=== PATIENT | female | born 1970 | race Caucasian/White ===

== ENCOUNTER 2017-08-12 19:42 | Emergency (ER) | payer BC ==
[~2017-08-12] VITALS: Ht 167.6 cm; Wt 52.2 kg
--- NOTE | 2017-08-12 20:09 | NUR ---
DR ADWOA FLORES MD AT BEDSIDE FOR MSE.
--- NOTE | 2017-08-12 20:27 | NUR ---
Patient discharged to home in stable conditon. Written and verbal after care instructions given. Patient verbalizes understanding of instructions. Pt ambulatory w/ steady gait. No distress noted. Pt took all personal belongings. Pt accompanied by significant other.
[2017-08-12 20:30] VITALS: BP 111/68
== END 2017-08-12 20:31 | disposition home or self-care (01) ==
LOC: ER 19:43
DX: M54.5 Low back pain (principal)
CPT/HCPCS: A4663

== ENCOUNTER 2018-05-29 17:03 | Emergency (ER) | payer BC ==
[~2018-05-29] VITALS: Ht 170.2 cm; Wt 52.2 kg
[2018-05-29] MEDS ORDERED: AMPH20CA3 PO (17:11)
[2018-05-29] MEDS ORDERED: IBUP-1957 PO (17:11)
[2018-05-29 17:23] LABS: BASOPHILS # (AUTO) 0.1 K/uL (0.0-8.0); BASOPHILS % (AUTO) 0.5 % (0.0-2.0); EOSINOPHILS % (AUTO) 0.4 % (0.0-7.0); HEMATOCRIT 33.9 % (31.2-41.9); HEMOGLOBIN 10.9 g/dL (10.9-14.3); LYMPHOCYTES # (AUTO) 0.9 K/uL (20.0-40.0); LYMPHOCYTES % (AUTO) 7.7 % (20.5-51.5); MEAN CORPUSCULAR HEMOGLOBIN 27.6 uug (24.7-32.8); MEAN CORPUSCULAR HGB CONC 32 g/dL (32.3-35.6); MEAN CORPUSCULAR VOLUME 85.7 fL (75.5-95.3); MONOCYTES # (AUTO) 0.8 K/uL (2.0-10.0); MONOCYTES % (AUTO) 6.4 % (0.0-11.0); NEUTROPHILS # (AUTO) 10.1 K/uL (1.8-8.9); PLATELET COUNT (AUTO) 304 K/uL (179-408); RED BLOOD CELL COUNT(AUTO) 3.95 MIL/uL (3.63-4.92); WHITE BLOOD COUNT (AUTO) 11.9 K/uL (3.8-11.8)
[2018-05-29 17:28] LABS: *BILIRUBIN,URIN NEGATIVE (NEGATIVE); *BLOOD, URINE 2+ (NEGATIVE); *CLARITY,URINE CLOUDY (CLEAR); *COLOR,URINE YELLOW (YELLOW); *KETONES,URINE NEGATIVE (NEGATIVE); *UROBILINOGEN,URINE 0.2 E.U./dl (NORMAL); LEUKOCYTE ESTERASE ,URINE TRACE (NEGATIVE); NITRITE, URINE POSITIVE (NEGATIVE); PH,URINE >=9.0 (5.0-8.0); UGLUCOSE NEGATIVE (NEGATIVE)
[2018-05-29 17:31] LABS: *URINE HCG, QUAL NEGATIVE (NEGATIVE)
[2018-05-29 17:33] LABS: CREATININE 0.8 mg/dL (0.6-1.3); POTASSIUM 3.7 mmol/L (3.5-5.1)
--- NOTE | 2018-05-29 17:35 | NUR ---
Patient refused IV line insertion for now, notified.
[2018-05-29 17:36] LABS: BACTERIA,URINE MANY /HPF (NONE SEEN); MUCUS,URINE MANY /LPF (0-FEW); SQUAMOUS EPITHELIAL CELL,UR MODERATE /HPF (NONE SEEN); URINE AMORPHOUS PHOSPHATES MODERATE /HPF
[2018-05-29] MEDS ORDERED: MORPHINE SULFATE 4 MG/1 ML DISP.SYRIN ONE (17:36)
[2018-05-29] MEDS ORDERED: ONDANSETRON 4 MG/2 ML VIAL ONE (17:36)
--- NOTE | 2018-05-29 17:37 | NUR ---
Patient wants to HOLD the IV morphine for now until the U/S scan is done & MD dominique notified.
[2018-05-29 17:39] LABS: BILIRUBIN,DIRECT 0.1 mg/dL (0.0-0.2); BILIRUBIN,TOTAL 0.5 mg/dL (0.2-1.0); TOTAL PROTEIN, SERUM 7.3 g/dL (6.4-8.2)
[2018-05-29] MEDS: ONDANSETRON 4 MG/2 ML VIAL IV ONE ×2 (17:44→17:54)
[2018-05-29] MEDS: MORPHINE SULFATE 4 MG/1 ML DISP.SYRIN IV ONE ×2 (17:44→18:35)
--- NOTE | 2018-05-29 18:30 | NUR ---
Patient is consenting to IV Morphine now, still for pelvic exam & CT scan@this time.
--- NOTE | 2018-05-29 18:55 | NUR ---
Patient is resting comfortably on gurney while intermittently using her personal electronic device, NAD, for results and disposition.
--- NOTE | 2018-05-29 19:00 | NUR ---
Received report from Maureen, assumed care of pt.,
--- NOTE | 2018-05-29 19:06 | NUR ---
Pt. back from CT, all needs met, NAD
--- NOTE | 2018-05-29 19:36 | NUR ---
Called Radiology to f/u on CT and US results, pt. reports being thirsty - awaiting results to give fluids
--- NOTE | 2018-05-29 19:51 | NUR ---
Pt. given ice chips for comfort,
--- NOTE | 2018-05-29 20:23 | NUR ---
Dr. Mata at bedside to discuss treatment, mother at bedside,
[2018-05-29] MEDS ORDERED: AMOXICILLIN-CLAVUL 875-125MG TABLET PO ONE (20:45)
[2018-05-29] MEDS ORDERED: HYDROCODONE/APAP 5-325MG TABLET PO ONE (20:45)
[2018-05-29] MEDS ORDERED: AMOXICILLIN-CLAVUL 875-125MG TABLET ONE (20:50)
[2018-05-29] MEDS ORDERED: HYDROCODONE/APAP 5-325MG TABLET ONE (20:50)
--- NOTE | 2018-05-29 21:08 | NUR ---
Patient discharged to home in stable conditon. Written and verbal after care instructions given. Patient verbalizes understanding of instructions. Pt. d/c w/ prescription per MD order, d/c papers signed, all belongings w/ pt., ID band/IV removed, ambulated off unit w/ steady gait accompanied by mother, instructed not to drive, NAD,
== END 2018-05-29 21:10 | disposition home or self-care (01) ==
LOC: ER 17:06
DX: R10.32 Left lower quadrant pain (principal); M54.5 Low back pain; Z79.1 Long term (current) use of non-steroidal anti-inflammatories (NSAID); Z79.899 Other long term (current) drug therapy
CPT/HCPCS: 36415; 74176; 76856; 80048; 80076; 81001; 83690; 84703; 85025; 96374; 96375; 99284; J2270; J2405; A4663

== ENCOUNTER 2019-07-01 13:47 | Emergency (ER) | payer BC, OTHER ==
[~2019-07-01] VITALS: Ht 167.6 cm; Wt 54.4 kg
[~2019-07-01 13:47] MED LIST: AMPH20CA3 PO; IBUP-1957 PO
--- NOTE | 2019-07-01 14:03 | NUR ---
PT IS IN ROOM #4A. DR RICO EVALUATED THE PT.
[2019-07-01] MEDS ORDERED: HYDROMORPHONE 1 MG/1 ML DISP.SYRIN IV ONE (14:15)
[2019-07-01] MEDS ORDERED: ONDANSETRON 4 MG/2 ML VIAL IV ONE (14:15)
[2019-07-01] MEDS ORDERED: IV NORMAL SALINE 1000 ML BAG IV ONE (14:15)
[2019-07-01] MEDS ORDERED: HYDROMORPHONE 1 MG/1 ML DISP.SYRIN ONE (14:19)
[2019-07-01] MEDS ORDERED: ONDANSETRON 4 MG/2 ML VIAL ONE (14:19)
[2019-07-01 14:22] LABS: BASOPHILS # (AUTO) 0.1 K/uL (0.0-8.0); BASOPHILS % (AUTO) 0.8 % (0.0-2.0); EOSINOPHILS # (AUTO) 0.1 K/uL (0.0-0.7); EOSINOPHILS % (AUTO) 1.3 % (0.0-7.0); HEMOGLOBIN 11.5 g/dL (10.9-14.3); LYMPHOCYTES # (AUTO) 1.5 K/uL (20.0-40.0); LYMPHOCYTES % (AUTO) 17.1 % (20.5-51.5); MEAN CORPUSCULAR HEMOGLOBIN 28.7 uug (24.7-32.8); MEAN CORPUSCULAR HGB CONC 33 g/dL (32.3-35.6); MEAN CORPUSCULAR VOLUME 87.5 fL (75.5-95.3); MONOCYTES # (AUTO) 0.5 K/uL (2.0-10.0); MONOCYTES % (AUTO) 5.8 % (0.0-11.0); NEUTROPHILS # (AUTO) 6.7 K/uL (1.8-8.9); PLATELET COUNT (AUTO) 276 K/uL (179-408)
[2019-07-01 14:26] LABS: *URINE HCG, QUAL NEGATIVE (NEGATIVE)
[2019-07-01 14:29] LABS: *BILIRUBIN,URIN NEGATIVE (NEGATIVE); *CLARITY,URINE CLEAR (CLEAR); *COLOR,URINE YELLOW (YELLOW); *KETONES,URINE NEGATIVE (NEGATIVE); *UROBILINOGEN,URINE 0.2 E.U./dl (NORMAL); CREATININE 0.9 mg/dL (0.6-1.3); LEUKOCYTE ESTERASE ,URINE NEGATIVE (NEGATIVE); NITRITE, URINE NEGATIVE (NEGATIVE); POTASSIUM 3.4 mmol/L (3.5-5.1); UGLUCOSE NEGATIVE (NEGATIVE)
[2019-07-01 14:33] LABS: *BLOOD, URINE TRACE (NEGATIVE)
[2019-07-01 14:35] LABS: BILIRUBIN,DIRECT 0.2 mg/dL (0.0-0.2); BILIRUBIN,TOTAL 0.7 mg/dL (0.2-1.0); TOTAL PROTEIN, SERUM 7.6 g/dL (6.4-8.2)
[2019-07-01 14:36] LABS: MUCUS,URINE MANY /LPF (0-FEW); SQUAMOUS EPITHELIAL CELL,UR FEW /HPF (NONE SEEN); WBC,URINE 0-3 /HPF (0-3)
--- NOTE | 2019-07-01 15:43 | NUR ---
Patient discharged to home in stable condition. Written and verbal after care instructions given. Patient verbalizes understanding of instructions. pt walks in steady gait. pt not driving.Stressed follow up or return to ER for worsening s/s.
[2019-07-01 15:44] VITALS: BP 141/81
== END 2019-07-01 15:45 | disposition home or self-care (01) ==
LOC: ER 13:47
DX: K57.32 Diverticulitis of large intestine without perforation or abscess without bleeding (principal); G43.909 Migraine, unspecified, not intractable, without status migrainosus; Z79.899 Other long term (current) drug therapy; R11.0 Nausea
CPT/HCPCS: 36415; 74176; 80048; 80076; 81001; 83690; 84703; 85025; 96361; 96374; 96375; 99284; J1170; J2405; A4663; J7030

== ENCOUNTER 2020-09-28 23:21 | Emergency (ER) | payer BC, MEDICAID, OTHER ==
[~2020-09-28] VITALS: Ht 167.6 cm; Wt 54.4 kg
[2020-09-29] MEDS ORDERED: TDAP DIPH,PERTUSS,TET VAC/PF 0.5 ML DISP.SYRIN IM ONE ×2 (01:00→01:13)
[2020-09-29] MEDS ORDERED: LIDOCAINE HCL 1% 20 ML VIAL IJ ONE (01:00)
--- NOTE | 2020-09-29 01:00 | NUR ---
Patient is resting comfortably in bed with her daughter at bedside, no acute distress noted.
[2020-09-29 01:29] VITALS: BP 118/72
== END 2020-09-29 02:00 | disposition home or self-care (01) ==
LOC: ER 23:23
DX: S61.211A Laceration without foreign body of left index finger without damage to nail, initial encounter (principal); W26.0XXA Contact with knife, initial encounter; Y93.G1 Activity, food preparation and clean up; Y92.010 Kitchen of single-family (private) house as the place of occurrence of the external cause
CPT/HCPCS: 90715; A4217; A4663

== ENCOUNTER 2022-07-28 21:38 | Emergency (ER) | payer MEDICAID ==
[~2022-07-28] VITALS: Ht 165.1 cm; Wt 56.7 kg
--- NOTE | 2022-07-28 22:00 | NUR ---
Pt is noted alert, responsive as she came in C/O Abdominal pain and Cramping with Diarrhea x2days. Pt care continue as awaits MD orders.
[2022-07-28] MEDS ORDERED: IV NORMAL SALINE 1000 ML BAG IV ONE (22:15)
[2022-07-28] MEDS ORDERED: ONDANSETRON 4 MG/2 ML VIAL IV ONE (22:15)
[2022-07-28] MEDS ORDERED: HYDROMORPHONE 1 MG/1 ML DISP.SYRIN IV ONE (22:15)
[2022-07-28 22:35] LABS: HEMATOCRIT 41.6 % (31.2-41.9); MEAN CORPUSCULAR HEMOGLOBIN 32.4 uug (24.7-32.8); MEAN CORPUSCULAR VOLUME 95.1 fL (75.5-95.3); PLATELET COUNT (AUTO) 292 K/uL (179-408)
[2022-07-28] MEDS ORDERED: ONDANSETRON 4 MG/2 ML VIAL ONE (22:39)
[2022-07-28] MEDS ORDERED: HYDROMORPHONE 1 MG/1 ML DISP.SYRIN ONE (22:40)
--- NOTE | 2022-07-28 22:43 | NUR ---
Pt care continue as she us been medicated with Dilaudid 1mg IVP , Zofran 4mg IVPand 0.9NS [id number] given.
[2022-07-28] MEDS ORDERED: CELLULOSE,OXIDIZED 2x3 MC ONE (22:45)
[2022-07-28] MEDS ORDERED: IV NORMAL SALINE 250 ML IV ONE (22:45)
[2022-07-28] MEDS ORDERED: IOHEXOL 300MG/ML 100 ML INFUS..BTL ONE (22:45)
[2022-07-28] MEDS ORDERED: SWABABLE VALVE TRANSFER SET EA MC ONE (22:46)
[2022-07-28 22:49] LABS: BILIRUBIN,DIRECT 0.1 mg/dL (0.0-0.2); BILIRUBIN,TOTAL 0.4 mg/dL (0.2-1.0); CREATININE 0.8 mg/dL (0.6-1.3); POTASSIUM 3.6 mmol/L (3.5-5.1); TOTAL PROTEIN, SERUM 7.5 g/dL (6.4-8.2)
--- NOTE | 2022-07-28 23:39 | NUR ---
Pt care continue as consent is signed for CT with contrast.
--- NOTE | 2022-07-28 23:43 | NUR ---
Pt is noted off to CT. Ptcare continue.
--- NOTE | 2022-07-29 00:09 | NUR ---
Pt is noted back from CT. Pt care continue.
[2022-07-29] MEDS ORDERED: PROCHLORPERAZINE EDISYLATE 10 MG/2 ML VIAL ONE (00:27)
[2022-07-29] MEDS ORDERED: PROCHLORPERAZINE EDISYLATE 10 MG/2 ML VIAL IV ONE (00:30)
--- NOTE | 2022-07-29 00:33 | NUR ---
Pt care continue as Compazine 10mg IVP given as ordered.
[2022-07-29] MEDS ORDERED: PROC10TA29 PO (00:51)
[2022-07-29] MEDS ORDERED: DIPH1TAB PO (00:51)
--- NOTE | 2022-07-29 01:05 | NUR ---
Pt is noted off the unit , stable as she is been discharge to home with all discharge instructions given with no S/S off distress or C/O pain.
[2022-07-29 01:09] VITALS: BP 122/78
== END 2022-07-29 01:10 | disposition home or self-care (01) ==
LOC: ER 21:49
DX: A08.4 Viral intestinal infection, unspecified (principal); E83.51 Hypocalcemia; Z79.1 Long term (current) use of non-steroidal anti-inflammatories (NSAID); Z79.899 Other long term (current) drug therapy
CPT/HCPCS: 99285; 74177; 96374; 96361; 96375 ×2; 80076; 80048; 85025; 36415; J2405; Q9967; J1170; J7040; J0780; A4663